=== PATIENT | female | born 1990 | race American Indian/Alaskan Native ===

== ENCOUNTER 2016-04-13 00:45 | Emergency (ER) | payer MEDICAID ==
[2016-04-13 02:08] LABS: Eosinophils % (Auto) 3.4 % (0.0-4.3); Hematocrit 37.4 % (30.3-42.9); Hemoglobin 12.2 gm/dl (10.1-14.3); Mean Corpuscular HGB Conc 33 % (30-34); Mean Corpuscular Volume 77 fl (79-97); Platelet Count 134 K/mm3 (140-440); Red Blood Count 4.88 M/mm3 (3.65-5.03); Red Cell Distribution Width 14.9 % (13.2-15.2); White Blood Count 4.2 K/mm3 (4.5-11.0)
[2016-04-13 02:09] LABS: Mean Corpuscular Hemoglobin 25 pg (28-32)
[2016-04-13 02:28] LABS: Alanine Aminotransferase 6 units/L (7-56); Albumin 4.3 g/dL (3.9-5); Albumin/Globulin Ratio 1.4 %; Alkaline Phosphatase 45 units/L (35-129); BUN/Creatinine Ratio 16.66; Bilirubin,Total < 0.2 mg/dL (0.1-1.2); Blood Urea Nitrogen 15 mg/dL (7-17); Calcium 8.8 mg/dL (8.4-10.2); Carbon Dioxide 23 mmol/L (22-30); Chloride 102.8 mmol/L (98-107); Glucose 88 mg/dL (65-100); Lipase 28 units/L (13-60); Potassium 3.5 mmol/L (3.6-5.0); Sodium 141 mmol/L (137-145); Total Protein 7.4 g/dL (6.3-8.2)
[2016-04-13 02:34] LABS: Anion Gap 19 mmol/L
[2016-04-13 07:43] VITALS: BP 108/54
[2016-04-13 07:57] LABS: Bilirubin,Urine NEG (Negative); Blood,Urine LG (Negative); Ketones,Urine TR mg/dL (Negative); Leukocyte Esterase,Urine TR (Negative); Mucus,Urine 2+ /HPF; Nitrite,Urine NEG (Negative); Protein,Urine <15 mg/dL mg/dL (Negative); Urobilinogen,Urine < 2.0 mg/dL (<2.0)
[2016-04-13] MEDS ORDERED: NACL 0.9% 1000 ML IV ONE (09:08)
[2016-04-13] MEDS ORDERED: ZOFRAN IV ONE (09:08)
--- NOTE | 2016-04-13 09:42 | Emergency Department Report ---
HPI - General Chief Complaint: Abdominal Pain Time Seen by Provider: 04/13/16 08:48 - HPI HPI: Chief complaint: Abdominal pain, nausea vomiting and diarrhea HPI: Patient is a 26-year-old female that states for the last 3 days she's had nausea vomiting and diarrhea. Patient continued to have nausea but after one day of vomiting 1 or 2 times she's had no more vomiting. Patient had 2 days worth of diarrhea with a total number of loose stools less than 5. Patient complains of a temperature 103 year prior to coming to the emergency department and has a dry cough. Patient states her abdominal pain is all over and sharp and comes and goes. Patient states just prior to vomiting or having chest diarrhea pain gets worse. Patient has had 4 C-sections and recently had a miscarriage but no other abdominal surgeries. Patient brought her son in to be seen and while she was here decided to be seen herself. Mode of arrival: private car Source: Patient Began: 2-3 days ago Duration: Intermittent Context: See above Quality: Sharp Severity: 8 out of 10 Improved with: Nothing Worsened with: Eating Associated signs and symptoms: See above ED Past Medical Hx - Past Medical History Previous Medical History?: Yes Additional medical history: ANEMIA - Surgical History Additional Surgical History: X 4 - Social History Smoking Status: Never Smoker - Medications Home Medications: Home Medications Medication Instructions Recorded Confirmed Last Taken Type HYDROcodone/APAP 5-325 [[place] 1 each PO Q6HR PRN #14 tablet 02/17/16 Unknown Rx 5/325] Methylergonovine [Methergine] 0.2 mg PO Q6H #5 tablet 02/17/16 Unknown Rx Ondansetron [Zofran Odt] 4 mg PO Q4H PRN #10 tab.rapdis 04/13/16 Unknown Rx ED Review of Systems ROS: Stated complaint: BODY ACHES, DIFFICULTY IN BREATHING Other details as noted in HPI ROS Constitutional: No fever ENT: No uri symptoms Cardiovascular: No chest pain Respiratory: No sob or cough GI: See HPI : No dysuria frequency or urgency, Skin: No rash Neuro: No focal weakness or numbness Psych: No depression [place]/lymph: No edema Physical Exam - Physical Exam Vital Signs: Vital Signs 04/13/16 04/13/16 04/13/16 01:43 06:50 07:42 Temperature 97.9 F 98.3 F Pulse Rate 93 H 91 H 78 Respiratory 16 17 18 Rate Blood Pressure 124/82 Blood Pressure 139/87 108/54 [Left] O2 Sat by Pulse 100 99 100 Oximetry Physical Exam: GENERAL: The patient is well-developed well-nourished . HEENT: Normocephalic. Atraumatic. Extraocular motions are intact. Patient has moist mucous membranes. NECK: Supple. No meningitic signs are noted. There is no adenopathy noted. CHEST/LUNGS: Clear to auscultation. There is no respiratory distress noted. HEART/CARDIOVASCULAR: Regular. There is no tachycardia. There is no gallop rub or murmur. ABDOMEN: Abdomen is soft, diffuse abdominal tenderness worse in the right or quadrant. Patient has normal bowel sounds. There is no abdominal distention. SKIN: There is no rash. There is no edema. There is no diaphoresis. NEURO: The patient is awake, alert, and oriented. The patient is cooperative. The patient has no focal neurologic deficits. The patient has normal speech. MUSCULOSKELETAL: There is no tenderness or deformity. There is no limitation range of motion. There is no evidence of acute injury. ED Course Vital Signs 04/13/16 04/13/16 04/13/16 01:43 06:50 07:42 Temperature 97.9 F 98.3 F Pulse Rate 93 H 91 H 78 Respiratory 16 17 18 Rate Blood Pressure 124/82 Blood Pressure 139/87 108/54 [Left] O2 Sat by Pulse 100 99 100 Oximetry - Reevaluation(s) Reevaluation #1: 04/13/16 10:53 Patient given Zofran and a liter of normal saline with improvement. ED Medical Decision Making - Lab Data Result diagrams: 04/13/16 01:55 04/13/16 01:55 Laboratory Tests 04/13/16 04/13/16 01:55 07:43 Lipase 28 Ur Leukocyte Esterase Tr Urine WBC (Auto) 3.0 Urine RBC (Auto) 5.0 U Epithel Cells (Auto) 9.0 Urine Mucus 2+ Urine HCG, Qual Negative - Radiology Data Radiology results: report reviewed (CT of the abdomen and pelvis shows no acute process.) Critical care attestation.: If time is entered above; I have spent that time in minutes in the direct care of this critically ill patient, excluding procedure time. ED Disposition Clinical Impression: Gastroenteritis Disposition: DISCHARGED TO HOME OR SELFCARE Is pt being admited?: No Does the pt Need Aspirin: No Condition: Stable Instructions: Gastroenteritis (ED), Abdominal Pain (ED) Prescriptions: Ondansetron [Zofran Odt] 4 mg PO Q4H PRN #10 tab.rapdis PRN Reason: Nausea And Vomiting Referrals: PRIMARY CARE, [Primary Care Provider] - 3-5 Days Time of Disposition: 10:45
--- NOTE | 2016-04-13 10:23 | Cat Scan Report ---
CT ABDOMEN AND PELVIS WITH CONTRAST INDICATION: Abdominal pain. COMPARISON: 05/01/2011. FINDINGS: Abdomen and pelvis CT performed following intravenous administration of 100 cc of Omnipaque 300. LUNG BASES: Nonspecific distal esophageal wall thickening, not excluded for gastroesophageal reflux and/or hiatal hernia, amongst others. ABDOMEN: Left hepatic lobe tip again touches the spleen in the left upper quadrant. Indeterminate 5 mm peripheral right hepatic hypodensity, axial image 43, series 2. Elongated right hepatic lobe, approximately 17.5 cm in midclavicular length. Otherwise unremarkable liver, spleen, contracted gallbladder, pancreas, adrenals, nonaneurysmal abdominal aorta, IVC and non-hydronephrotic kidneys. No ascites or size significant adenopathy. Nonopacified GI tract evaluation limited, though grossly nonobstructive. PELVIS: Urinary bladder, uterus, adnexa/ovaries and the rectosigmoid within normal limits. No free fluid or significant adenopathy. Unremarkable bones. CONCLUSION: No acute CT abnormality with few incidental findings, as above. Thank you for the opportunity to participate in this patient's care.
[2016-04-13] MEDS ORDERED: PEPCID IV ONE ×2 (10:52→10:54)
== END 2016-04-13 11:33 | disposition home or self-care (01) ==
LOC: ED 00:45
DX: K52.9 Noninfective gastroenteritis and colitis, unspecified (principal); D64.9 Anemia, unspecified; Z88.8 Allergy status to other drugs, medicaments and biological substances
CPT/HCPCS: 36415; 74177; 80053; 81001; 81025; 83690; 85025; 96361; 96374; 96375; 99284; J2405; J7030; Q9967

== ENCOUNTER 2017-03-22 12:01 | Emergency (ER) | payer MEDICAID ==
[2017-03-22 12:05] VITALS: BP 118/65
[2017-03-22] MEDS ORDERED: ZOFRAN ODT PO ONE (12:56)
--- NOTE | 2017-03-22 13:16 | Emergency Department Report ---
Chief Complaint: Nausea/Vomiting/Diarrhea Stated Complaint: VOMITING Time Seen by Provider: 03/22/17 12:52 - HPI History of Present Illness: Patient is a 27-year-old female who is presenting with nausea vomiting diarrhea started approximately 2 hours before arrival. Patient denies any fever. Patient's daughter has the same condition - ROS Review of Systems: Review of systems negative except for those elements in HPI - Exam Vital Signs: Vital Signs 03/22/17 03/22/17 12:03 13:07 Temperature 98.4 F Pulse Rate 106 H Respiratory 16 Rate Blood Pressure 118/65 O2 Sat by Pulse 100 100 Oximetry Physical Exam: Focused physical exam shows abdomen is soft nontender nondistended normal bowel sounds heart lung exams were within normal limits MSE screening note: Focused history and physical exam performed. Due to findings the following was ordered: ED Disposition for MSE Clinical Impression: Gastroenteritis Disposition: DC-01 TO HOME OR SELFCARE Is pt being admited?: No Does the pt Need Aspirin: No Condition: Fair Instructions: Gastroenteritis (ED) Prescriptions: Dicyclomine [Bentyl] 20 mg PO QID #10 tablet Diphenoxylate/Atropine [Lomotil] 1 tab PO BID PRN #7 tablet PRN Reason: Diarrhea Famotidine [Pepcid] 20 mg PO BID #10 tablet Ondansetron [Zofran Odt] 4 mg PO TID #10 tab.cory Referrals: ANA LILIA VÁSQUEZ MD [Primary Care Provider] - 3-5 Days
== END 2017-03-22 14:08 | disposition home or self-care (01) ==
LOC: ED 12:01
DX: K52.9 Noninfective gastroenteritis and colitis, unspecified (principal)
CPT/HCPCS: 99282; Q0162

== ENCOUNTER 2017-10-07 15:24 | Emergency (ER) | payer SELFPAY ==
[2017-10-07 15:33] VITALS: BP 117/72
[2017-10-07] MEDS ORDERED: NACL 0.9% 1000 ML 1,000 ML IV ONE (16:09)
[2017-10-07] MEDS ORDERED: TORADOL IV ONE (16:09)
[2017-10-07] MEDS ORDERED: ZOFRAN IV ONE (16:09)
--- NOTE | 2017-10-07 16:21 | Emergency Department Report ---
Blank Doc - Documentation Documentation: Patient is a 27-year-old female who has implanted control hormone device who states that for the past 30 days she's had continuous vaginal bleeding it has gotten worse. Patient states that she also last 2 days has left lower quadrant pain. Patient states there is no dysuria vaginal discharge. Patient states her urine does have a strong odor. Patient denies any chest pain shortness of breath fatigued. Patient will since her treatment room for IV fluids. Labs and urinalysis will be ordered. Ultrasound be taken as well. Be
[2017-10-07 16:55] LABS: Basophils % (Auto) 0.6 % (0.0-1.8); Eosinophils # (Auto) 0.1 K/mm3 (0.0-0.4); Eosinophils % (Auto) 2.2 % (0.0-4.3); Hematocrit 41.3 % (30.3-42.9); Hemoglobin 13.4 gm/dl (10.1-14.3); Mean Corpuscular HGB Conc 32 % (30-34); Mean Corpuscular Hemoglobin 28 pg (28-32); Mean Corpuscular Volume 86 fl (79-97); Monocytes # (Auto) 0.4 K/mm3 (0.0-0.8); Monocytes % (Auto) 8.4 % (0.0-7.3); Platelet Count 138 K/mm3 (140-440); Red Blood Count 4.78 M/mm3 (3.65-5.03); Red Cell Distribution Width 13.5 % (13.2-15.2)
[2017-10-07 17:31] LABS: BUN/Creatinine Ratio 19; Blood Urea Nitrogen 13 mg/dL (7-17); Calcium 9.7 mg/dL (8.4-10.2); Hemolysis Index 4
[2017-10-07 17:59] LABS: Bacteria,Urine 2+ /HPF (Negative); Bilirubin,Urine NEG (Negative); Blood,Urine LG (Negative); Calcium Oxalate Crystals,Urine 1+; Color,Urine Amber (Yellow); Mucus,Urine 3+ /HPF
--- NOTE | 2017-10-07 18:30 | Ultrasound Report ---
FINAL REPORT PROCEDURE: US PELVIC COMPLETE TECHNIQUE: Real-time transabdominal sonography in multiple planes of the pelvis was performed. The pelvic structures, especially the ovaries were not optimally visualized. Transvaginal sonography was then performed to better evaluate the structures and/or abnormalities described below with image documentation. Limited Doppler evaluation of the ovaries. HISTORY: Left lower quadrant pain. Abnormal vaginal bleeding. COMPARISON: No prior studies are available for comparison. FINDINGS: UTERUS Size: 9.1 x 3.8 x 4.4 cm. Endometrial thickness: 4.6 mm. Orientation: anteverted. Cervix: Normal. Fibroids/masses: None. RIGHT Ovary: 3.5 x 2.1 x 2.2 cm. Appearance: 2 cm cyst. Normal flow. LEFT Ovary: 3.1 x 2.2 x 2.8 cm. Appearance: Normal flow. Limited visualization of the left ovary/adnexa.. Pelvic fluid: None. Other: None. IMPRESSION: No sonographic evidence of significant pelvic abnormality. Right ovarian cyst, physiologic in young female.
--- NOTE | 2017-10-07 18:47 | Emergency Department Report ---
ED Abdominal Pain HPI - General Chief Complaint: Abdominal Pain Stated Complaint: SHARP PAINS, BLOOD IN URINE, ECTOPIC PREG Time Seen by Provider: 10/07/17 15:57 Source: patient Mode of arrival: Ambulatory Limitations: No Limitations - History of Present Illness Initial Comments: Patient is a 27-year-old female who has implanted control hormone device who states that for the past 30 days she's had continuous vaginal bleeding it has gotten worse. Patient states that she also last 2 days has left lower quadrant pain. Patient states there is no dysuria vaginal discharge. Patient states her urine does have a strong odor. Patient denies any chest pain shortness of breath fatigued. Location: LLQ Radiation: none Severity: severe Severity scale (0 -10): 10 Quality: cramping, aching, sharp Consistency: constant Associated Symptoms: nausea. denies: vomiting, diarrhea, fever, chills, constipation, dysuria, hematemesis, hematochezia, melena, hematuria, anorexia, syncope - Related Data Previous Rx's Medication Instructions Recorded Last Taken Type HYDROcodone/APAP 5-325 [[place] 1 each PO Q6HR PRN #14 tablet 02/17/16 Unknown Rx 5/325] Methylergonovine [Methergine] 0.2 mg PO Q6H #5 tablet 02/17/16 Unknown Rx Ondansetron [Zofran Odt] 4 mg PO Q4H PRN #10 tab.rapdis 04/13/16 Unknown Rx Dicyclomine [Bentyl] 20 mg PO QID #10 tablet 03/22/17 Unknown Rx Diphenoxylate/Atropine [Lomotil] 1 tab PO BID PRN #7 tablet 03/22/17 Unknown Rx Famotidine [Pepcid] 20 mg PO BID #10 tablet 03/22/17 Unknown Rx Ondansetron [Zofran Odt] 4 mg PO TID #10 tab.rapdis 03/22/17 Unknown Rx HYDROcodone/APAP 5-325 [[place] 1 each PO Q6HR PRN #12 tablet 10/07/17 Unknown Rx 5/325] Ibuprofen [Motrin] 800 mg PO Q8HR PRN #20 tablet 10/07/17 Unknown Rx Nitrofurantoin Monohyd/M-Cryst 100 mg PO BID #14 capsule 10/07/17 Unknown Rx [Macrobid 100 mg Capsule] Allergies Allergy/AdvReac Type Severity Reaction Status Date / Time tramadol Allergy Unknown Verified 02/16/16 13:16 ED Review of Systems ROS: Stated complaint: SHARP PAINS, BLOOD IN URINE, ECTOPIC PREG Other details as noted in HPI Comment: All other systems reviewed and negative ED Past Medical Hx - Past Medical History Previous Medical History?: Yes Hx Hypertension: No Hx Heart Attack/AMI: No Hx Congestive Heart Failure: No Hx Diabetes: No Hx Deep Vein Thrombosis: No Hx Liver Disease: No Hx Renal Disease: No Hx Sickle Cell Disease: No Hx Seizures: No Hx Asthma: No Hx COPD: No Hx HIV: No Additional medical history: ANEMIA - Surgical History Past Surgical History?: Yes Hx Pacemaker: No Hx Internal Defibrillator: No Additional Surgical History: X 4 - Social History Smoking Status: Current Every Day Smoker Substance Use Type: Alcohol - Medications Home Medications: Home Medications Medication Instructions Recorded Confirmed Last Taken Type HYDROcodone/APAP 5-325 [[place] 1 each PO Q6HR PRN #14 tablet 02/17/16 Unknown Rx 5/325] Methylergonovine [Methergine] 0.2 mg PO Q6H #5 tablet 02/17/16 Unknown Rx Ondansetron [Zofran Odt] 4 mg PO Q4H PRN #10 tab.rapdis 04/13/16 Unknown Rx Dicyclomine [Bentyl] 20 mg PO QID #10 tablet 03/22/17 Unknown Rx Diphenoxylate/Atropine [Lomotil] 1 tab PO BID PRN #7 tablet 03/22/17 Unknown Rx Famotidine [Pepcid] 20 mg PO BID #10 tablet 03/22/17 Unknown Rx Ondansetron [Zofran Odt] 4 mg PO TID #10 tab.rapdis 03/22/17 Unknown Rx HYDROcodone/APAP 5-325 [[place] 1 each PO Q6HR PRN #12 tablet 10/07/17 Unknown Rx 5/325] Ibuprofen [Motrin] 800 mg PO Q8HR PRN #20 tablet 10/07/17 Unknown Rx Nitrofurantoin Monohyd/M-Cryst 100 mg PO BID #14 capsule 10/07/17 Unknown Rx [Macrobid 100 mg Capsule] ED Physical Exam - General Limitations: No Limitations General appearance: alert, in no apparent distress - Head Head exam: Present: atraumatic, normocephalic - Eye Eye exam: Present: normal appearance - ENT ENT exam: Present: mucous membranes moist - Neck Neck exam: Present: normal inspection - Respiratory Respiratory exam: Present: normal lung sounds bilaterally. Absent: respiratory distress, wheezes, rales, rhonchi - Cardiovascular Cardiovascular Exam: Present: regular rate, normal rhythm. Absent: systolic murmur, diastolic murmur, rubs, gallop - GI/Abdominal GI/Abdominal exam: Present: soft, normal bowel sounds. Absent: distended, tenderness, guarding, rebound - Extremities Exam Extremities exam: Present: normal inspection - Back Exam Back exam: Present: normal inspection - Neurological Exam Neurological exam: Present: alert, oriented X3 - Psychiatric Psychiatric exam: Present: normal affect, normal mood - Skin Skin exam: Present: warm, dry, intact, normal color. Absent: rash ED Course Vital Signs 10/07/17 15:30 Temperature 98.4 F Pulse Rate 82 Respiratory 18 Rate Blood Pressure 117/72 O2 Sat by Pulse 99 Oximetry ED Medical Decision Making - Lab Data Result diagrams: 10/07/17 16:18 10/07/17 16:18 Lab Results 10/07/17 10/07/17 10/07/17 Range/Units 16:18 16:18 16:18 WBC 5.3 (4.5-11.0) K/mm3 RBC 4.78 (3.65-5.03) M/mm3 Hgb 13.4 (10.1-14.3) gm/dl Hct 41.3 (30.3-42.9) % MCV 86 (79-97) fl MCH 28 (28-32) pg MCHC 32 (30-34) % RDW 13.5 (13.2-15.2) % Plt Count 138 L (140-440) K/mm3 Lymph % (Auto) 38.0 H (13.4-35.0) % [place] % (Auto) 8.4 H (0.0-7.3) % Eos % (Auto) 2.2 (0.0-4.3) % Baso % (Auto) 0.6 (0.0-1.8) % Lymph # 2.0 (1.2-5.4) K/mm3 [place] # 0.4 (0.0-0.8) K/mm3 Eos # 0.1 (0.0-0.4) K/mm3 Baso # 0.0 (0.0-0.1) K/mm3 Seg Neutrophils % 50.8 (40.0-70.0) % Seg Neutrophils # 2.7 (1.8-7.7) K/mm3 Sodium 141 (137-145) mmol/L Potassium 3.6 (3.6-5.0) mmol/L Chloride 102.4 (98-107) mmol/L Carbon Dioxide 24 (22-30) mmol/L Anion Gap 18 mmol/L BUN 13 (7-17) mg/dL Creatinine 0.7 (0.7-1.2) mg/dL Estimated GFR > 60 ml/min BUN/Creatinine Ratio 19 % Glucose 91 (65-100) mg/dL Calcium 9.7 (8.4-10.2) mg/dL HCG, Qual Negative (Negative) Urine Color (Yellow) Urine Turbidity (Clear) Urine pH (5.0-7.0) Ur Specific Line [place] (1.003-1.030) Urine Protein (Negative) mg/dL Urine Glucose (UA) (Negative) mg/dL Urine Ketones (Negative) mg/dL Urine Blood (Negative) Urine Nitrite (Negative) Urine Bilirubin (Negative) Urine Urobilinogen (<2.0) mg/dL Ur Leukocyte Esterase (Negative) Urine WBC (Auto) (0.0-6.0) /HPF Urine RBC (Auto) (0.0-6.0) /HPF U Epithel Cells (Auto) (0-13.0) /HPF Urine Bacteria (Auto) (Negative) /HPF Calcium Oxalate Crystal Urine Mucus /HPF 10/07/17 Range/Units 17:25 WBC (4.5-11.0) K/mm3 RBC (3.65-5.03) M/mm3 Hgb (10.1-14.3) gm/dl Hct (30.3-42.9) % MCV (79-97) fl MCH (28-32) pg MCHC (30-34) % RDW (13.2-15.2) % Plt Count (140-440) K/mm3 Lymph % (Auto) (13.4-35.0) % [place] % (Auto) (0.0-7.3) % Eos % (Auto) (0.0-4.3) % Baso % (Auto) (0.0-1.8) % Lymph # (1.2-5.4) K/mm3 [place] # (0.0-0.8) K/mm3 Eos # (0.0-0.4) K/mm3 Baso # (0.0-0.1) K/mm3 Seg Neutrophils % (40.0-70.0) % Seg Neutrophils # (1.8-7.7) K/mm3 Sodium (137-145) mmol/L Potassium (3.6-5.0) mmol/L Chloride (98-107) mmol/L Carbon Dioxide (22-30) mmol/L Anion Gap mmol/L BUN (7-17) mg/dL Creatinine (0.7-1.2) mg/dL Estimated GFR ml/min BUN/Creatinine Ratio % Glucose (65-100) mg/dL Calcium (8.4-10.2) mg/dL HCG, Qual (Negative) Urine Color [place] (Yellow) Urine Turbidity Clear (Clear) Urine pH 5.0 (5.0-7.0) Ur Specific Line [place] 1.042 H (1.003-1.030) Urine Protein 100 mg/dl (Negative) mg/dL Urine Glucose (UA) Neg (Negative) mg/dL Urine Ketones Tr (Negative) mg/dL Urine Blood Lg (Negative) Urine Nitrite Neg (Negative) Urine Bilirubin Neg (Negative) Urine Urobilinogen 2.0 (<2.0) mg/dL Ur Leukocyte Esterase Tr (Negative) Urine WBC (Auto) 9.0 H (0.0-6.0) /HPF Urine RBC (Auto) 3.0 (0.0-6.0) /HPF U Epithel Cells (Auto) 12.0 (0-13.0) /HPF Urine Bacteria (Auto) 2+ (Negative) /HPF Calcium Oxalate Crystal 1+ Urine Mucus 3+ /HPF - Radiology Data Pelvic ultrasound shows a small right-sided ovarian cyst. There is a small amount of physiologic fluid in the pelvis. No other abnormalities are seen. - Medical Decision Making Patient could've had a small ovarian cyst on the left rupture causing pain patient also has a urinary tract infection. Patient be started on pain meds and antibiotics will be discharged home. Critical care attestation.: If time is entered above; I have spent that time in minutes in the direct care of this critically ill patient, excluding procedure time. ED Disposition Clinical Impression: Acute cystitis Qualifiers: Hematuria presence: without hematuria Qualified Code(s): N30.00 - Acute cystitis without hematuria Ovarian cyst Qualifiers: Laterality: unspecified laterality Qualified Code(s): N83.209 - Unspecified ovarian cyst, unspecified side Disposition: TO HOME OR SELFCARE Is pt being admited?: No Does the pt Need Aspirin: No Condition: Stable Instructions: Urinary Tract Infection in Women (ED), Ovarian Cyst (ED) Referrals: ARTHUR COFFEY MD [Staff Physician] - 3-5 Days
== END 2017-10-07 19:00 | disposition home or self-care (01) ==
LOC: ED 15:24
DX: N83.209 Unspecified ovarian cyst, unspecified side (principal); N30.00 Acute cystitis without hematuria; D64.9 Anemia, unspecified; F17.200 Nicotine dependence, unspecified, uncomplicated; Z88.8 Allergy status to other drugs, medicaments and biological substances
CPT/HCPCS: 36415; 76830; 76856; 80048; 81001; 84703; 85025; 96374; 96375; 99284; J1885; J2405; J7030

== ENCOUNTER 2017-11-21 04:46 | Emergency (ER) | payer SELFPAY ==
[2017-11-21 05:27] VITALS: BP 103/83
[2017-11-21] MEDS ORDERED: TYLENOL ONE (05:27)
[2017-11-21] MEDS ORDERED: TYLENOL PO ONE (05:29)
[2017-11-21 05:46] LABS: Basophils % (Auto) 0.8 % (0.0-1.8); Eosinophils # (Auto) 0.1 K/mm3 (0.0-0.4); Eosinophils % (Auto) 2.5 % (0.0-4.3); Hematocrit 42.3 % (30.3-42.9); Hemoglobin 14.3 gm/dl (10.1-14.3); Lymphocytes # (Auto) 2.3 K/mm3 (1.2-5.4); Lymphocytes % (Auto) 40.1 % (13.4-35.0); Mean Corpuscular HGB Conc 34 % (30-34); Mean Corpuscular Hemoglobin 29 pg (28-32); Mean Corpuscular Volume 86 fl (79-97); Monocytes # (Auto) 0.4 K/mm3 (0.0-0.8); Red Blood Count 4.93 M/mm3 (3.65-5.03); Red Cell Distribution Width 13.4 % (13.2-15.2)
[2017-11-21 05:48] LABS: Platelet Count 160 K/mm3 (140-440)
[2017-11-21 05:59] LABS: Alanine Aminotransferase 7 units/L (7-56); Albumin 4.5 g/dL (3.9-5); BUN/Creatinine Ratio 13; Blood Urea Nitrogen 9 mg/dL (7-17); Calcium 9.9 mg/dL (8.4-10.2); Hemolysis Index 11
== END 2017-11-21 08:10 | disposition left against medical advice (07) ==
LOC: ED 04:46
DX: R10.9 Unspecified abdominal pain (principal); R11.2 Nausea with vomiting, unspecified; Z53.21 Procedure and treatment not carried out due to patient leaving prior to being seen by health care provider
CPT/HCPCS: 36415; 80053; 85025

== ENCOUNTER 2018-06-15 08:32 | Day surgery (SDC) | payer MEDICAID ==
[2018-06-15] MEDS ORDERED: NACL 0.9% 1000 ML 1,000 ML IV ONE ×2 (08:39→10:26)
[2018-06-15] MEDS ORDERED: MORPHINE IV ONE ×2 (08:39→09:11)
[2018-06-15] MEDS ORDERED: ZOFRAN IV ONE (08:39)
[2018-06-15 09:01] LABS: Basophils # (Auto) 0.1 K/mm3 (0.0-0.1); Basophils % (Auto) 1.1 % (0.0-1.8); Eosinophils # (Auto) 0.2 K/mm3 (0.0-0.4); Eosinophils % (Auto) 2.4 % (0.0-4.3); Hematocrit 33.1 % (30.3-42.9); Hemoglobin 11.3 gm/dl (10.1-14.3); Lymphocytes # (Auto) 2.1 K/mm3 (1.2-5.4); Lymphocytes % (Auto) 30.4 % (13.4-35.0); Mean Corpuscular HGB Conc 34 % (30-34); Mean Corpuscular Volume 85 fl (79-97); Monocytes # (Auto) 0.5 K/mm3 (0.0-0.8); Monocytes % (Auto) 6.9 % (0.0-7.3); Platelet Count 147 K/mm3 (140-440); Red Cell Distribution Width 13.5 % (13.2-15.2)
[2018-06-15 09:12] LABS: INR 0.79 (0.87-1.13)
[2018-06-15] MEDS ORDERED: BENADRYL IV ONE (09:12)
[2018-06-15 09:13] LABS: Partial Thromboplastin Time 22.5 Sec. (24.2-36.6)
[2018-06-15 09:24] LABS: Alanine Aminotransferase 6 units/L (7-56); Albumin 4.3 g/dL (3.9-5); BUN/Creatinine Ratio 18; Blood Urea Nitrogen 11 mg/dL (7-17); Calcium 9.2 mg/dL (8.4-10.2); Hemolysis Index 8
[2018-06-15 09:30] LABS: Bilirubin,Direct < 0.2 mg/dL (0-0.2)
--- NOTE | 2018-06-15 09:40 | Emergency Department Report ---
ED Female HPI - General Chief complaint: Vaginal Bleeding Stated complaint: 14 WKS /BLEEDING/ABD PAIN Time Seen by Provider: 06/15/18 08:38 Source: patient Mode of arrival: Ambulatory Limitations: No Limitations - History of Present Illness Initial comments: 28-year-old female who presents via EMS very agitated and emotionally labile. She is providing very limited historical information and essentially poorly cooperative. She is behaving somewhat erratically as well. From what I can get from limited history is that she has not had a period since March. He has not contacted an OB doctor. She complains of lower abdominal pain associated with nausea and vomiting. She states that her pain is "between my legs". MD Complaint: pelvic pain -: days(s) (told the nurse she said pain for days, the patient is giving me very limited history) Location: perineum Severity: severe Quality: other (will not specify) Consistency: constant Improves with: none Worsens with: other (will not specify) Are you Now?: Yes (patient states yes, no ultrasound obtained as far as she will tell me) - Related Data Previous Rx's Medication Instructions Recorded Last Taken Type HYDROcodone/APAP 5-325 [[place] 1 each PO Q6HR PRN #14 tablet 02/17/16 Unknown Rx 5/325] Methylergonovine [Methergine] 0.2 mg PO Q6H #5 tablet 02/17/16 Unknown Rx Ondansetron [Zofran Odt] 4 mg PO Q4H PRN #10 tab.rapdis 04/13/16 Unknown Rx Dicyclomine [Bentyl] 20 mg PO QID #10 tablet 03/22/17 Unknown Rx Diphenoxylate/Atropine [Lomotil] 1 tab PO BID PRN #7 tablet 03/22/17 Unknown Rx Famotidine [Pepcid] 20 mg PO BID #10 tablet 03/22/17 Unknown Rx Ondansetron [Zofran Odt] 4 mg PO TID #10 tab.rapdis 03/22/17 Unknown Rx HYDROcodone/APAP 5-325 [[place] 1 each PO Q6HR PRN #12 tablet 10/07/17 Unknown Rx 5/325] Ibuprofen [Motrin] 800 mg PO Q8HR PRN #20 tablet 10/07/17 Unknown Rx Nitrofurantoin Monohyd/M-Cryst 100 mg PO BID #14 capsule 10/07/17 Unknown Rx [Macrobid 100 mg Capsule] Doxycycline [Vibramycin CAP] 100 mg PO Q12HR #14 capsule 06/15/18 Unknown Rx Ibuprofen [Motrin] 800 mg PO Q8HR PRN #20 tablet 06/15/18 Unknown Rx Methylergonovine [Methergine] 0.2 mg PO Q8HR #6 tablet 06/15/18 Unknown Rx Allergies Allergy/AdvReac Type Severity Reaction Status Date / Time tramadol Allergy Unknown Verified 02/16/16 13:16 ED Review of Systems ROS: Stated complaint: 14 WKS /BLEEDING/ABD PAIN Other details as noted in HPI Comment: Unobtainable due to pts medical conditions (very limited secondary to poor patient cooperation) ED Past Medical Hx - Past Medical History Hx Hypertension: No Hx Heart Attack/AMI: No Hx Congestive Heart Failure: No Hx Diabetes: No Hx Deep Vein Thrombosis: No Hx Liver Disease: No Hx Renal Disease: No Hx Sickle Cell Disease: No Hx Seizures: No Hx Asthma: No Hx COPD: No Hx HIV: No Additional medical history: ANEMIA - Surgical History Hx Pacemaker: No Hx Internal Defibrillator: No Additional Surgical History: X 4 - Social History Smoking Status: Never Smoker Substance Use Type: Alcohol - Medications Home Medications: Home Medications Medication Instructions Recorded Confirmed Last Taken Type HYDROcodone/APAP 5-325 [[place] 1 each PO Q6HR PRN #14 tablet 02/17/16 06/15/18 Unknown Rx 5/325] Methylergonovine [Methergine] 0.2 mg PO Q6H #5 tablet 02/17/16 06/15/18 Unknown Rx Ondansetron [Zofran Odt] 4 mg PO Q4H PRN #10 tab.rapdis 04/13/16 06/15/18 Unknown Rx Dicyclomine [Bentyl] 20 mg PO QID #10 tablet 03/22/17 06/15/18 Unknown Rx Diphenoxylate/Atropine [Lomotil] 1 tab PO BID PRN #7 tablet 03/22/17 06/15/18 Unknown Rx Famotidine [Pepcid] 20 mg PO BID #10 tablet 03/22/17 06/15/18 Unknown Rx Ondansetron [Zofran Odt] 4 mg PO TID #10 tab.rapdis 03/22/17 06/15/18 Unknown Rx HYDROcodone/APAP 5-325 [[place] 1 each PO Q6HR PRN #12 tablet 10/07/17 06/15/18 Unknown Rx 5/325] Ibuprofen [Motrin] 800 mg PO Q8HR PRN #20 tablet 10/07/17 06/15/18 Unknown Rx Nitrofurantoin Monohyd/M-Cryst 100 mg PO BID #14 capsule 10/07/17 06/15/18 Unknown Rx [Macrobid 100 mg Capsule] Doxycycline [Vibramycin CAP] 100 mg PO Q12HR #14 capsule 06/15/18 Unknown Rx Ibuprofen [Motrin] 800 mg PO Q8HR PRN #20 tablet 06/15/18 Unknown Rx Methylergonovine [Methergine] 0.2 mg PO Q8HR #6 tablet 06/15/18 Unknown Rx ED Physical Exam - General Limitations: No Limitations General appearance: alert, in no apparent distress - Head Head exam: Present: atraumatic, normocephalic - Eye Eye exam: Present: normal appearance. Absent: scleral icterus - ENT ENT exam: Present: mucous membranes moist - Neck Neck exam: Present: normal inspection. Absent: tenderness, meningismus - Respiratory Respiratory exam: Present: normal lung sounds bilaterally. Absent: respiratory distress - Cardiovascular Cardiovascular Exam: Present: normal rhythm, tachycardia. Absent: systolic murmur, diastolic murmur, rubs, gallop - GI/Abdominal GI/Abdominal exam: Present: soft, normal bowel sounds. Absent: distended, tenderness, guarding, rebound, rigid - Extremities Exam Extremities exam: Present: normal inspection, full ROM, normal capillary refill. Absent: tenderness, pedal edema, joint swelling, calf tenderness - Back Exam Back exam: Present: normal inspection - Neurological Exam Neurological exam: Present: alert, oriented X3, CN II-XII intact. Absent: motor sensory deficit - Psychiatric Psychiatric exam: Present: agitated, anxious - Skin Skin exam: Present: warm, dry, intact, normal color. Absent: rash ED Course Vital Signs 06/15/18 06/15/18 06/15/18 08:45 08:51 08:52 Temperature 97.0 F L 97.0 F L Pulse Rate 90 94 H 94 H Respiratory 19 18 18 Rate Blood Pressure 118/44 Blood Pressure 118/44 [Left] O2 Sat by Pulse 100 100 Oximetry 06/15/18 06/15/18 06/15/18 11:35 13:04 14:05 Temperature 97.6 F Pulse Rate 70 81 102 H Respiratory 16 20 102 H Rate Blood Pressure 107/71 Blood Pressure 94/64 108/71 [Left] O2 Sat by Pulse 100 100 100 Oximetry 06/15/18 06/15/18 06/15/18 14:30 14:35 14:40 Temperature Pulse Rate 79 78 79 Respiratory 12 12 12 Rate Blood Pressure 89/41 92/50 85/45 Blood Pressure [Left] O2 Sat by Pulse 98 98 98 Oximetry 06/15/18 06/15/18 14:45 14:50 Temperature Pulse Rate 87 79 Respiratory 16 13 Rate Blood Pressure 104/58 102/57 Blood Pressure [Left] O2 Sat by Pulse 98 98 Oximetry - Reevaluation(s) Reevaluation #1: Chest with donor floor technician. He believes that the patient has an incomplete perhaps approximately an 8 week fetus in the lower uterine segment with significant bleeding. Unless spoke to Dr. Ravin Bhatt who is an route to examine and determine the next appropriate step. 06/15/18 10:25 Reevaluation #2: Patient is calmer on exam and giving me a little bit more history. The diagnosis was explained to her. She states she has been bleeding intermittently since Saturday. Dr. Bhatt is en route to examine her. 06/15/18 10:30 ED Medical Decision Making - Lab Data Result diagrams: 06/15/18 08:44 06/15/18 08:44 Laboratory Results - last 24 hr 06/15/18 06/15/18 06/15/18 08:44 08:44 08:44 WBC 6.8 RBC 3.90 Hgb 11.3 Hct 33.1 MCV 85 MCH 29 MCHC 34 RDW 13.5 Plt Count 147 Lymph % (Auto) 30.4 [place] % (Auto) 6.9 Eos % (Auto) 2.4 Baso % (Auto) 1.1 Lymph # 2.1 [place] # 0.5 Eos # 0.2 Baso # 0.1 Seg Neutrophils % 59.2 Seg Neutrophils # 4.0 PT 11.4 L INR 0.79 L APTT 22.5 L Sodium 141 Potassium 3.7 Chloride 104.6 Carbon Dioxide 23 Anion Gap 17 BUN 11 Creatinine 0.6 L Estimated GFR > 60 BUN/Creatinine Ratio 18 Glucose 106 H Calcium 9.2 Total Bilirubin 0.20 Direct Bilirubin < 0.2 AST 11 ALT 6 L Alkaline Phosphatase 32 L Total Protein 6.9 Albumin 4.3 Albumin/Globulin Ratio 1.7 HCG, Quant Blood Type Antibody Screen 06/15/18 06/15/18 08:44 08:44 WBC RBC Hgb Hct MCV MCH MCHC RDW Plt Count Lymph % (Auto) [place] % (Auto) Eos % (Auto) Baso % (Auto) Lymph # [place] # Eos # Baso # Seg Neutrophils % Seg Neutrophils # PT INR APTT Sodium Potassium Chloride Carbon Dioxide Anion Gap BUN Creatinine Estimated GFR BUN/Creatinine Ratio Glucose Calcium Total Bilirubin Direct Bilirubin AST ALT Alkaline Phosphatase Total Protein Albumin Albumin/Globulin Ratio HCG, Quant 959.8 H Blood Type B POSITIVE Antibody Screen Negative Critical care attestation.: If time is entered above; I have spent that time in minutes in the direct care of this critically ill patient, excluding procedure time. ED Disposition Clinical Impression: Incomplete Disposition: DC- TO HOME OR SELFCARE Is pt being admited?: No Does the pt Need Aspirin: No Condition: Stable Instructions: Dilation and Curettage (ED) Prescriptions: Methylergonovine [Methergine] 0.2 mg PO Q8HR #6 tablet Ibuprofen [Motrin] 800 mg PO Q8HR PRN #20 tablet PRN Reason: Pain, Moderate (4-6) Doxycycline [Vibramycin CAP] 100 mg PO Q12HR #14 capsule [facility] [Primary Care Provider[facility] - 3-5 Days HENNA BHATT MD [Staff Physician] - 7 Days Time of Disposition: 15:08
[2018-06-15] MEDS ORDERED: DILAUDID IV ONE ×2 (10:26→13:07)
--- NOTE | 2018-06-15 11:14 | Ultrasound Report ---
PROCEDURE: US OB <= 14 WEEKS FETUS TECHNIQUE: Ultrasound imaging of the pelvis was performed transabdominally. HISTORY: 13 weeks abd pain COMPARISONS: None. FINDINGS: The study was extremely limited as the patient was experiencing pain during the examination. Limited views of the uterus demonstrates an irregular area of fluid in the lower uterine segment and upper ce rvical canal. No embryonic pole or yolk sac are seen. Endometrial thickness of the upper endometrium measures 7 mm. The uterus measures 14.6 x 5.6 cm. Ovaries were not seen. No free fluid was identified. IMPRESSION: Limited exam due to patient pain. Irregular appearing fluid in the lower uterine segment and upper ce rvix may represent an in progress/failed early versus nonspecific endometrial flui d versus cervical ectopic . Consider repeat examination to better assess this structure. This document is electronically signed by Kelsey Leyva., June 15 2018 11:12:15 AM ET
--- NOTE | 2018-06-15 11:33 | Short Stay Summary ---
Short Stay Documentation Date of service: 06/15/18 Narrative H&P: Pt is a 28yo BF LMP 03/17/18 presents to [facility] ER complaining a pelvic pain and vaginal bleeding. She states she passed tissue and was unable to tolerate the vaginal probe u/s, but transabdominal u/s showed the uterus to be 14.6 x 5.6cm with an irregular sac in the lower uterine segment. WBC is 6.8 and H/H is 11.3/33.1 Bhcg 959.8 She will therefore be scheduled for a D&C. - History Principal diagnosis: Incomplete H&P: obtained from office Past Medical History: No medical history Past Surgical History: Social history: no significant social history, single - Allergies and Medications Current Medications: Allergies tramadol Allergy (Verified 02/16/16 13:16) Unknown Home Medications Medication Instructions Recorded Confirmed Last Taken Type HYDROcodone/APAP 5-325 [[place] 1 each PO Q6HR PRN #14 tablet 02/17/16 06/15/18 Unknown Rx 5/325] Methylergonovine [Methergine] 0.2 mg PO Q6H #5 tablet 02/17/16 06/15/18 Unknown Rx Ondansetron [Zofran Odt] 4 mg PO Q4H PRN #10 tab.rapdis 04/13/16 06/15/18 Unknown Rx Dicyclomine [Bentyl] 20 mg PO QID #10 tablet 03/22/17 06/15/18 Unknown Rx Diphenoxylate/Atropine [Lomotil] 1 tab PO BID PRN #7 tablet 03/22/17 06/15/18 Unknown Rx Famotidine [Pepcid] 20 mg PO BID #10 tablet 03/22/17 06/15/18 Unknown Rx Ondansetron [Zofran Odt] 4 mg PO TID #10 tab.rapdis 03/22/17 06/15/18 Unknown Rx HYDROcodone/APAP 5-325 [[place] 1 each PO Q6HR PRN #12 tablet 10/07/17 06/15/18 Unknown Rx 5/325] Ibuprofen [Motrin] 800 mg PO Q8HR PRN #20 tablet 10/07/17 06/15/18 Unknown Rx Nitrofurantoin Monohyd/M-Cryst 100 mg PO BID #14 capsule 10/07/17 06/15/18 Unknown Rx [Macrobid 100 mg Capsule] - Physical exam General appearance: no acute distress Integumentary: no rash HEENT: Atraumatic Lungs: Clear to auscultation Breasts: deferred Heart: Regular rate Gastrointestinal: normal Female Genitourinary: deferred Rectal Exam: deferred Extremities: no ischemia, No edema Neurological: Normal gait, Normal speech - Brief post op/procedure progress note Date of procedure: 06/15/18 Pre-op diagnosis: Incomplete Post-op diagnosis: same Procedure: Dilatation and curettage Anesthesia: MAC Findings: An 8-10 week size uterus with large amounts of products of conception Surgeon: HENNA COFFEY Estimated blood loss: 50-100ml Pathology: list (Products of conception) Specimen disposition: to lab Condition: stable - Hospital course Hospital course: Unremarkable - Disposition Condition at discharge: Stable Disposition: DC-01 TO HOME OR SELFCARE - Discharge Diagnoses (1) Incomplete Status: Resolved Short Stay Discharge Plan Activity: no restrictions Diet: regular Follow up with: RIO CANELA MD [Primary Care Provider] - 3-5 Days HENNA COFFEY MD [Staff Physician] - 7 Days Prescriptions: Methylergonovine [Methergine] 0.2 mg PO Q8HR #6 tablet Ibuprofen [Motrin] 800 mg PO Q8HR PRN #20 tablet PRN Reason: Pain, Moderate (4-6) Doxycycline [Vibramycin CAP] 100 mg PO Q12HR #14 capsule
[2018-06-15] MEDS ORDERED: ANCEF/STERILE WATER 2 GM/20 ML 2 GM/20 ML SYRINGE IV NR (12:00)
[2018-06-15] MEDS ORDERED: ZOFRAN IV PRN (12:45)
[2018-06-15] MEDS ORDERED: SUBLIMAZE IV PRN (12:45)
[2018-06-15] MEDS ORDERED: ATIVAN IV ONE ×2 (13:05→13:06)
[2018-06-15] MEDS ORDERED: DILAUDID ONE (13:05)
[2018-06-15] MEDS ORDERED: SUBLIMAZE ONE (13:25)
[2018-06-15] MEDS ORDERED: DIPRIVAN 10 MG/ML IV ONE (13:25)
[2018-06-15] MEDS ORDERED: LACTATED RINGERS 1,000 ML ONE (13:26)
--- NOTE | 2018-06-15 13:32 | Anesthesia Day of Surgery ---
Anesthesia Day of Surgery - Day of Surgery Patient Examined: Yes Patient H&P Reviewed: Yes Patient is NPO: Yes ([id number])
--- NOTE | 2018-06-15 13:33 | Anesthesia Consultation ---
Anesthesia Consult and Med Hx Date of service: 06/15/18 - Airway Anesthetic Teeth Evaluation: Good ROM Head & Neck: Adequate Mental/Hyoid Distance: Adequate Mallampati Class: Class II Intubation Access Assessment: Good - Pre-Operative Health Status ASA Pre-Surgery Classification: ASA2, Emergency Proposed Anesthetic Plan: General - Pulmonary Hx Smoking: Yes Hx Asthma: No Hx Respiratory Symptoms: No SOB: No COPD: No Hx Pneumonia: No Hx Sleep Apnea: No - Cardiovascular System Hx Hypertension: No Hx Coronary Artery Disease: No Hx Heart Attack/AMI: No Hx Angina: No Hx Percutaneous Transluminal Coronary Angioplasty (PTCA): No Hx Cardia Arrhythmia: No Hx Pacemaker: No Hx Internal Defibrillator: No Hx Valvular Heart Disease: No Hx Heart Murmur: No Hx Peripheral Vascular Disease: No - Central Nervous System Hx Neuromuscular Disorder: No Hx Seizures: No CVA: No Hx Back Pain: No Hx Psychiatric Problems: No - Gastrointestinal Hx Ulcer: No Hx Gastroesophageal Reflux Disease: No - Endocrine Hx Renal Disease: No Hx End Stage Renal Disease: No Hx Cirrhosis: No Hx Liver Disease: No Hx Insulin Dependent Diabetes: No Hx Non-Insulin Dependent Diabetes: No Hx Thyroid Disease: No Hx Hypothyroidism: No Hx Hyperthyroidism: No - Hematic Hx Anemia: No Hx Sickle Cell Disease: No - Other Systems Hx Alcohol Use: No Hx Substance Use: No Hx Cancer: No - Additional Comments Anesthesia Medical History Comments: 11-19 gest; Inc AB
[2018-06-15] MEDS ORDERED: ZOFRAN ONE (13:35)
[2018-06-15] MEDS ORDERED: DECADRON ONE (13:35)
[2018-06-15] MEDS ORDERED: TORADOL ONE (13:36)
--- NOTE | 2018-06-15 14:08 | Operative Report ---
Operative Report Operative Report: PREOPERATIVE DIAGNOSIS: Incomplete POSTOPERATIVE DIAGNOSIS: Same OPERATIVE PROCEDURE: Dilatation and curettage. SURGEON: Vineet Bhatt MD ANESTHESIA: Gen. mask ANESTHESIOLOGIST: Dr. Wise ESTIMATED BLOOD LOSS: 70 mL FINDINGS: An 8-10 weeks size uterus with moderate amounts of parts of conception COMPLICATIONS: None COUNTS: Correct x3. PROCEDURE: After the patient was correctly identified as the patient, and after general anesthesia was administered, the patient was prepped and draped in the usual sterile fashion and placed in dorsal lithotomy position. First, the bladder was emptied using a straight catheter. Next, a speculum was placed in the vaginal vault and the entire sac with products of conception was removed using ring forceps and sent to pathology. Next the anterior lip of the cervix was grasped using a single-tooth tenaculum. The uterus was sounded to 10 cm. T he cervical os was sequentially dilated, and an 10 mm vaccurette was used to suction blood and products of conception from the uterine cavity. After all the products of conception were removed, the procedure was considered complete. All instruments were removed from the vagina. The patient tolerated the procedure well and was transferred to the recovery room in stable condition.
[2018-06-15 15:15] VITALS: BP 100/56
--- NOTE | 2018-06-15 19:17 | Post Anesthesia Evaluation ---
- Post Anesthesia Evaluation Patient Participated: Yes Airway Patent: Yes Stable Respiratory Function: Yes Nausea/Vomiting: No Temp > 96.8F: Yes Pain Manageable: Yes Adequeate Hydration: Yes Anesthesia Complications: No Block Receding Appropriately: Not Applicable Patient on Ventilator: No
== END 2018-06-15 16:00 | disposition home or self-care (01) ==
LOC: ED 08:32 → OR 11:28 → ED 13:00 → OR 16:00
PROVIDERS: ATTEND Obstetrics & Gynecology
DX: O03.4 Incomplete spontaneous abortion without complication (principal); O99.011 Anemia complicating pregnancy, first trimester; Z88.6 Allergy status to analgesic agent; Z3A.08 8 weeks gestation of pregnancy
CPT/HCPCS: 36415; 59812; 76801; 80048; 80076; 84702; 85025; 85610; 85730; 86850; 86900; 86901; 88305; 96361; 96374; 96375; 96376; 99284; J1100; J1170; J1200; J1885; J2270; J2405; J2704; J3010; J7030; J7120

== ENCOUNTER 2019-02-24 12:39 | Emergency (ER) | payer SELFPAY ==
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
[2019-02-24] MEDS ORDERED: oxyCODONE /ACETAMINOPHEN 5-325MG TAB PO ONE (16:22)
[2019-02-24] MEDS ORDERED: ONDANSETRON 4 MG ODT TAB PO STA (16:22)
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
[2019-02-24 17:46] VITALS: BP 127/82
== END 2019-02-24 17:44 | disposition home or self-care (01) ==
LOC: ED 12:39
DX: S62.323A Displaced fracture of shaft of third metacarpal bone, left hand, initial encounter for closed fracture (principal); S62.325A Displaced fracture of shaft of fourth metacarpal bone, left hand, initial encounter for closed fracture; D64.9 Anemia, unspecified; F17.200 Nicotine dependence, unspecified, uncomplicated; Z79.899 Other long term (current) drug therapy; Z88.8 Allergy status to other drugs, medicaments and biological substances; V49.49XA Driver injured in collision with other motor vehicles in traffic accident, initial encounter; Y93.89 Activity, other specified; Y92.410 Unspecified street and highway as the place of occurrence of the external cause; Y99.8 Other external cause status
CPT/HCPCS: Q0162

== ENCOUNTER 2021-10-22 14:45 | Emergency (ER) | payer SELFPAY ==
[2021-10-22 14:56] VITALS: BP 116/68
== END 2021-10-22 21:00 | disposition left against medical advice (07) ==
LOC: ED 14:45
DX: J06.9 Acute upper respiratory infection, unspecified (principal); Z53.21 Procedure and treatment not carried out due to patient leaving prior to being seen by health care provider